=== PATIENT | female | born 1965 | race African-American/Black ===

== ENCOUNTER 2019-01-01 10:41 | Emergency (ER) | payer MEDICAID, OTHER ==
[~2019-01-01] VITALS: Ht 167.6 cm; Wt 87.0 kg
[~2019-01-01 10:41] MED LIST: VIC
[2019-01-01] MEDS ORDERED: NITROGLYCERIN 0.4MG TABLET SL SL PRN (11:45)
[2019-01-01] MEDS ORDERED: ASPIRIN 81MG TABLET PO ONE (11:45)
[2019-01-01 11:50] LABS: BASOPHILS % 0.6 % (0.0-2.0); EOSINOPHILS % 1.1 % (0.0-5.0); HEMATOCRIT. 34.2 % (36.0-48.0); MEAN CORPUSCULAR HEMOGLOBIN 27.4 pg (28.0-32.0); MEAN CORPUSCULAR VOLUME 84.9 fL (81.0-99.0); MEAN PLATELET VOLUME 8.2 fl (7.4-10.4); MONOCYTES % 10.1 % (2.0-8.0); NEUTROPHILS % 42.2 % (40.0-76.0); PLATELET 201 x1000/uL (130-400); RED BLOOD CELL COUNT 4.03 mill/uL (4.2-5.4); RED CELL DISTRIBUTION WIDTH 15.2 % (11.6-14.6)
[2019-01-01 11:55] LABS: CHLORIDE 107 mEq/L (98-107)
[2019-01-01 14:06] VITALS: BP 149/76
== END 2019-01-01 14:52 | disposition left against medical advice (07) ==
LOC: ER 10:41 → CANRESERV 14:47 → ENRESERV 14:47 → ER 14:52 → CANBEDREQ 19:59
DX: M79.605 Pain in left leg (principal); M79.604 Pain in right leg; R07.89 Other chest pain; I10 Essential (primary) hypertension; F12.10 Cannabis abuse, uncomplicated; Z98.51 Tubal ligation status
CPT/HCPCS: 36415; 71045; 80053; 83880; 84484; 85025; 85379; 93005; 93970; 99284; Z7610

== ENCOUNTER 2020-02-10 08:40 | Emergency (ER) | payer MEDICAID, OTHER ==
[~2020-02-10] VITALS: Ht 167.6 cm; Wt 86.0 kg
[2020-02-10] MEDS ORDERED: KETOROLAC 60MG/2ML VIAL IM ONE (09:30)
[2020-02-10 10:51] VITALS: BP 160/96
== END 2020-02-10 10:54 | disposition home or self-care (01) ==
LOC: ER 08:40 → EDBD 08:40 → ER 10:54
DX: R10.32 Left lower quadrant pain (principal); I10 Essential (primary) hypertension; F12.10 Cannabis abuse, uncomplicated
CPT/HCPCS: 73502; 96372; 99283; J1885

== ENCOUNTER 2020-09-10 17:58 | Emergency (ER) | payer MEDICAID ==
[~2020-09-10] VITALS: Ht 167.6 cm; Wt 95.0 kg
[2020-09-10] MEDS ORDERED: IBUP-2028 MT (19:12)
[2020-09-10] MEDS ORDERED: IBUPROFEN 600MG TABLET PO ONE (19:15)
[2020-09-10 19:23] VITALS: BP 188/91
== END 2020-09-10 19:24 | disposition home or self-care (01) ==
LOC: ER 17:58
DX: M25.511 Pain in right shoulder (principal); I10 Essential (primary) hypertension; V43.52XA Car driver injured in collision with other type car in traffic accident, initial encounter; Y93.89 Activity, other specified; Y92.410 Unspecified street and highway as the place of occurrence of the external cause
CPT/HCPCS: 99282

== ENCOUNTER 2022-07-10 08:08 | Emergency (ER) | payer MEDICAID ==
[~2022-07-10] VITALS: Ht 167.6 cm; Wt 94.0 kg
[~2022-07-10 08:08] MED LIST changes: +IBUP-2028 MT; -VIC
[2022-07-10] MEDS ORDERED: LIDOCAINE 5% PATCH TOP SCH (11:15)
[2022-07-10] MEDS ORDERED: ACETAMINOPHEN 325MG TABLET PO ONE (11:15)
[2022-07-10] MEDS ORDERED: IBUP-2028 MT (11:23)
[2022-07-10 11:29] VITALS: BP 139/83
== END 2022-07-10 11:37 | disposition home or self-care (01) ==
LOC: ER 08:08
DX: M54.50 Low back pain, unspecified (principal); M25.512 Pain in left shoulder; V49.49XA Driver injured in collision with other motor vehicles in traffic accident, initial encounter; Y93.89 Activity, other specified; Y92.89 Other specified places as the place of occurrence of the external cause; Y99.8 Other external cause status; I10 Essential (primary) hypertension; F12.10 Cannabis abuse, uncomplicated
CPT/HCPCS: 99281